=== PATIENT | female | born 1985 | race Caucasian/White ===

== ENCOUNTER 2019-03-19 12:47 | Inpatient (IN) | payer MEDICAID ==
[~2019-03-19] VITALS: Ht 175.3 cm; Wt 79.4 kg
[2019-03-19 15:46] LABS: BASOPHILS 0.2 % (0-2); EOSINOPHILS 1.6 % (0-7); HEMATOCRIT 44.9 % (36.0-48.0); HEMOGLOBIN 14.8 g/dL (12-16); IMMATURE GRANULOCYTES 0.2 % (0-5); LYMPHOCYTES 14.8 % (15-50); MCH 30.6 pg (26.0-34.0); MEAN PLATELET VOLUME 9.4 fL (7.4-10.4); MONOCYTES 5.5 % (2-11); NEUTROPHILS 77.7 % (40-80); RBC 4.83 10x6/uL (4.00-5.40); WBC 16.4 10x3/uL (4.8-10.8)
[2019-03-19 15:47] LABS: PLATELET COUNT 313 10x3/uL (130-400)
[2019-03-19 15:58] LABS: CALC OSMOLALITY 276 mosm/kg (275-300); CALCIUM 8.7 mg/dL (8.5-10.1); CARBON DIOXIDE 30.9 mmol/L (21.0-32.0); CHLORIDE - SERUM 101 mmol/L (98-107); CREATININE - SERUM 0.9 mg/dL (0.6-1.3); GLUCOSE 91 mg/dL (74-106); POTASSIUM - SERUM 3.9 mmol/L (3.5-5.1); SODIUM 138 mmol/L (136-145); UREA NITROGEN 16 mg/dL (7-18); eGFR NON AFRICAN AMERICAN 77 mL/min (90-120)
[2019-03-19 16:04] LABS: ALBUMIN 2.9 g/dL (3.4-5.0); ALKALINE PHOSPHATASE 80 U/L (46-116); ALT (SGPT) 21 U/L (10-68); BILIRUBIN - TOTAL 0.59 mg/dL (0.2-1.3); C-REACTIVE PROTEIN 4.4 mg/dL (0.0-0.9); MAGNESIUM - SERUM 1.8 mg/dL (1.8-2.4); PROTEIN - SERUM 7.7 g/dL (6.4-8.2)
--- NOTE | 2019-03-19 17:44 | NUR ---
PT PROVIDED WITH ICE CHIPS.
[2019-03-19 18:34] VITALS: BP 99/62
--- NOTE | 2019-03-19 21:37 | NUR ---
PT ARRIVED ON UNIT VIA WHEELCHAIR, ESCORTED BY ER STAFF AND FAMILY MEMBER. IV TO RIGHT AC WITH NS INFUSING AT 100 ML/HR. ORIENTED TO ROOM AND CALL LIGHT.
--- NOTE | 2019-03-19 21:45 | NUR ---
GAVE MORPHINE AND ZOFRAN PER PRN ORDER, PER REQUEST FOR PAIN AND NAUSEA.
--- NOTE | 2019-03-19 22:00 | NUR ---
PROVIDED RAINER CRACKERS, PEANUT BUTTER, ICE CREAM, MILK, AND SODA FOR PT PER REQUEST FOR FOOD.
[2019-03-20] VITALS (7 sets, daily range): BP systolic 96–105; BP diastolic 50–458; BMI 25.9
--- NOTE | 2019-03-20 19:00 | NUR ---
BEDSIDE REPORT RECEIVED AND CARE OF PT ASSUMED. PT LYING IN SUPINE POSITION WITH EYES CLOSED AND EASY RESPIRATIONS. IV TO RIGHT AC PATENT WITH NS INFUSING AT 100 ML/HR. WILL MONITOR FOR NEEDS.
--- NOTE | 2019-03-20 20:54 | NUR ---
HS MEDICATIONS GIVEN. WILL CONTINUE TO MONITOR FOR NEEDS.
[2019-03-20 21:25] LABS: BASOPHILS 0.3 % (0-2); EOSINOPHILS 2.3 % (0-7); HEMATOCRIT 37.3 % (36.0-48.0); HEMOGLOBIN 11.9 g/dL (12-16); IMMATURE GRANULOCYTES 0.2 % (0-5); LYMPHOCYTES 14.9 % (15-50); MCH 30.4 pg (26.0-34.0); MCHC 31.9 g/dL (31.0-37.0); MEAN PLATELET VOLUME 9.3 fL (7.4-10.4); MONOCYTES 7.2 % (2-11); NEUTROPHILS 75.1 % (40-80); PLATELET COUNT 265 10x3/uL (130-400); RBC 3.91 10x6/uL (4.00-5.40); RDW 12.2 % (11.5-14.5); WBC 14.9 10x3/uL (4.8-10.8)
[2019-03-20 21:26] LABS: MCV 95.4 fL (80.0-100.0)
[2019-03-20 21:32] LABS: CALC OSMOLALITY 281 mosm/kg (275-300); CALCIUM 8.2 mg/dL (8.5-10.1); CARBON DIOXIDE 30.6 mmol/L (21.0-32.0); CHLORIDE - SERUM 105 mmol/L (98-107); CREATININE - SERUM 0.8 mg/dL (0.6-1.3); GLUCOSE 130 mg/dL (74-106); POTASSIUM - SERUM 3.9 mmol/L (3.5-5.1); SODIUM 141 mmol/L (136-145); eGFR NON AFRICAN AMERICAN 88 mL/min (90-120)
[2019-03-20 21:43] LABS: UREA NITROGEN 9 mg/dL (7-18)
--- NOTE | 2019-03-20 23:15 | NUR ---
COLLECTED URINE FOR ORDERED STUDIES AND DELIVERED TO LAB.
[2019-03-20 23:35] LABS: APPEARANCE CLEAR (CLEAR); BILIRUBIN NEGATIVE (NEGATIVE); COLOR YELLOW (YELLOW); GLUCOSE NEGATIVE (NEGATIVE); KETONE NEGATIVE (NEGATIVE); NITRITE NEGATIVE (NEGATIVE); PROTEIN NEGATIVE (NEGATIVE); UROBILINOGEN NORMAL (NORMAL)
[2019-03-20 23:43] LABS: UDS - AMPHET POSITIVE QUAL (NEGATIVE); UDS - BARB NEGATIVE QUAL (NEGATIVE); UDS - BENZO NEGATIVE QUAL (NEGATIVE); UDS - COCAINE NEGATIVE QUAL (NEGATIVE); UDS - OPIATE POSITIVE QUAL (NEGATIVE); UDS - PCP NEGATIVE QUAL (NEGATIVE); UDS - THC NEGATIVE QUAL (NEGATIVE)
[2019-03-21 04:00] VITALS: BP 95/56
[2019-03-21 04:42] LABS: BASOPHILS 0.2 % (0-2); EOSINOPHILS 2.6 % (0-7); HEMATOCRIT 37.8 % (36.0-48.0); IMMATURE GRANULOCYTES 0.4 % (0-5); LYMPHOCYTES 18.8 % (15-50); MCH 30.1 pg (26.0-34.0); MCHC 31.7 g/dL (31.0-37.0); MCV 94.7 fL (80.0-100.0); MEAN PLATELET VOLUME 9.3 fL (7.4-10.4); PLATELET COUNT 301 10x3/uL (130-400); RBC 3.99 10x6/uL (4.00-5.40); RDW 12.1 % (11.5-14.5); WBC 14.2 10x3/uL (4.8-10.8)
[2019-03-21 04:47] LABS: CALC OSMOLALITY 277 mosm/kg (275-300); CALCIUM 8.2 mg/dL (8.5-10.1); CARBON DIOXIDE 32.2 mmol/L (21.0-32.0); CHLORIDE - SERUM 103 mmol/L (98-107); CREATININE - SERUM 0.7 mg/dL (0.6-1.3); GLUCOSE 99 mg/dL (74-106); MAGNESIUM - SERUM 1.5 mg/dL (1.8-2.4); SODIUM 139 mmol/L (136-145); eGFR NON AFRICAN AMERICAN > 90 mL/min (90-120)
[2019-03-21 04:51] LABS: UREA NITROGEN 12 mg/dL (7-18)
--- NOTE | 2019-03-21 06:24 | NUR ---
PT CONSENTED FOR PROCEDURE WITH WITNESS NURSE.
--- NOTE | 2019-03-21 06:40 | NUR ---
HIBACLENS SHOWER COMPLETED AND ALL LINENS ANG GOWN CHANGED.
--- NOTE | 2019-03-21 06:56 | NUR ---
STARTED MAG RIDERS X2 1 GM PER THE ELECTROLYTE PROTOCAL
--- NOTE | 2019-03-21 07:15 | NUR ---
REC'D IN BED AWAKE AND ALERT. RESP EVEN AND UNLABORED WITH NO DISTRESS NOTED. CAN EXPRESS NEEDS AND WANTS. DRESSING NOTED TO RIGHT BREAST. ASSESSMENT COMPLETED. C/L IN REACH AT BEDSIDE.
--- NOTE | 2019-03-21 07:37 | NUR ---
PT C/O RIGHT BREAST PAIN RATING 7/10 ON PAIN SCALE. WAS MEDICATED WITH PRN PER ORDERS FOR PAIN AND NAUSEA. C/L IN REACH AT BEDSIDE.
[2019-03-21 07:58] VITALS: BP 94/55
[2019-03-21 10:27] VITALS: BP 88/46
--- NOTE | 2019-03-21 10:30 | NUR ---
RETURN FROM PROCEDURE WITH DRESSING INTACT WITH NOTED BLOOD TINGE STAIN WHICH IS A BOW DOLLAR IN SIZE SPOT MARKED. C/L IN REACH AT BEDSIDE.
[2019-03-21 11:39] VITALS: BP 90/45
[2019-03-21 13:33] VITALS: Ht 175.3 cm; Wt 79.4 kg
[2019-03-21 17:33] VITALS: BP 101/55
--- NOTE | 2019-03-21 18:35 | NUR ---
I have reviewed this patient and I concur with the Shift Assessment completed by the Licensed Practical Nurse today this shift.
--- NOTE | 2019-03-21 19:00 | NUR ---
BEDSIDE REPORT RECEIVED AND CARE OF PT ASSUMED. PT LYING IN SUPINE POSITION VISITING WITH FAMILY MEMBER. IV TO RIGHT AC PATENT WITH NS INFUSING AT 100 ML/HR. DRESSING ON RIGHT BREAST WITH BLOODY DRAINAGE SEEPING UP TO SURFACE ON BOTTOM HALF OF DRESSING. WILL MONITOR FOR NEEDS.
--- NOTE | 2019-03-21 20:33 | NUR ---
GAVE MORPHINE AND ZOFRAN IVP PER REQUEST FOR PAIN AND NAUSEA, PER PRN ORDER. WILL MONITOR FOR EFFECTIVENESS.
[2019-03-21 21:11] VITALS: BP 107/63
--- NOTE | 2019-03-21 21:30 | NUR ---
DRESSING ON RIGHT BREAST SOAKED WITH BLOODY DRAINAGE. REMOVED ALL OUTER DRESSINGS, LEAVING PACKING AND BOTTOM 2 4X4'S UNDISTURBED. REPLACED WITH 4X4'S AND ABD PAD. WILL CONTINUE TO MONITOR CLOSELY.
--- NOTE | 2019-03-21 21:39 | OP ---
PATIENT NAME: CHAS DAMON MEDICAL RECORD: [id number] :87 LOCATION:D.[facility] ADMISSION DATE:03/19/19 SURGEON: DEISY BROWN MD DATE OF OPERATION: 03/21/2019 SURGEON: Deisy Brown MD PREOPERATIVE DIAGNOSIS: Right breast abscess. POSTOPERATIVE DIAGNOSIS: Complex multiloculated right breast abscess. PROCEDURE PERFORMED: Incision and drainage of multiloculated complex right breast abscess 8 x 6 x 4 cm. ANESTHESIA: General. COMPLICATIONS: None. SPECIMENS: Anaerobic and aerobic cultures. Case was grossly contaminated. OPERATIVE COURSE: After consent was obtained, the patient was taken to the operating room and placed in supine position on the operating table. Next, general anesthesia was given. A timeout was taken to confirm the correct patient and procedure. The right breast was prepped and draped in typical sterile fashion. The area overlying necrotic skin was excised with a 15 blade scalpel. Approximately 40 cc of purulent fluid were expressed from the right breast cavity. Specimens were collected for anaerobic and aerobic culture. The abscess cavity was multiloculated. The loculations were broken with blunt finger dissection. The abscess cavity was then copiously irrigated and suctioned. It was packed with iodoform gauze and covered with dry gauze dressings and tape. At the end of the case, all needle and instrument counts were correct. No complications occurred. The patient extubated and transferred to the PACU in stable condition. TRANSINT:[id number] Voice Confirmation ID: [id number] DOCUMENT ID: [id number] DEISY BROWN MD at 2139 CC: [id number] DICTATION DATE: 03/21/19 0936 JEWELRY RACKER: 03/21/19 1201 ADM IN [facility] [id number] [place] [address]
--- NOTE | 2019-03-22 00:30 | NUR ---
GAVE MORPHINE AND ZOFRAN IVP PER REQUEST FOR PAIN AND NAUSEA, PER PRN ORDERS.
[2019-03-22 01:24] VITALS: BP 100/52
[2019-03-22 04:56] VITALS: BP 92/50
[2019-03-22 05:56] LABS: BASOPHILS 0.2 % (0-2); EOSINOPHILS 0.6 % (0-7); HEMATOCRIT 35.7 % (36.0-48.0); HEMOGLOBIN 11.5 g/dL (12-16); IMMATURE GRANULOCYTES 0.5 % (0-5); LYMPHOCYTES 18.1 % (15-50); MCH 30.6 pg (26.0-34.0); MCHC 32.2 g/dL (31.0-37.0); MCV 94.9 fL (80.0-100.0); MEAN PLATELET VOLUME 9.6 fL (7.4-10.4); MONOCYTES 6.1 % (2-11); NEUTROPHILS 74.5 % (40-80); PLATELET COUNT 301 10x3/uL (130-400); RBC 3.76 10x6/uL (4.00-5.40)
[2019-03-22 06:12] LABS: CALC OSMOLALITY 282 mosm/kg (275-300); CALCIUM 8.3 mg/dL (8.5-10.1); CARBON DIOXIDE 32.8 mmol/L (21.0-32.0); CHLORIDE - SERUM 106 mmol/L (98-107); CREATININE - SERUM 0.8 mg/dL (0.6-1.3); GLUCOSE 115 mg/dL (74-106); MAGNESIUM - SERUM 1.6 mg/dL (1.8-2.4); POTASSIUM - SERUM 4.2 mmol/L (3.5-5.1); SODIUM 142 mmol/L (136-145); UREA NITROGEN 11 mg/dL (7-18); eGFR NON AFRICAN AMERICAN 88 mL/min (90-120)
--- NOTE | 2019-03-22 07:35 | MORECARE ---
CASE MANAGEMENT DISCHARGE SUMMARY PATIENT: CHAS DAMON UNIT: [id number] ADM DATE: 03/19/19 AGE: 33 : [birth year] SEX: F ROOM/BED: D.2222 AUTHOR: JAKUB BUSH PHYSICIAN: REFERRING PHYSICIAN: JEAN CARVER MD DATE OF SERVICE: 03/22/19 Discharge Plan Patient Name: CHAS DAMON [facility] 1985 Planned Disposition: Home Anticipated Discharge Date: Discharge Date: Expected LOS: Initial Reviewer: [email or web address] Initial Review Date: 03/22/2019 Generated: 03/22/19 8:35 am DCPIA - Discharge Planning Initial Assessment Updated by [email or web address]: Loretta Hendrickson on 03/22/19 7:34 am * Is the patient Alert and Oriented? Yes * How many steps to enter\exit or inside your home? 0/0 * PCP None * Pharmacy [facility] * Preadmission Environment Home with Family * ADLs Independent * Equipment None * List name and contact numbers for known caregivers / representatives who currently or will assist patient after discharge: Luis Armando Fair - No phone * Verbal permission to speak to the caregivers and representatives has been obtained from the patient. Yes * Community resources currently utilized None * Additional services required to return to the preadmission environment? No * Can the patient safely return to the preadmission environment? Yes * Has this patient been hospitalized within the prior 30 days at any hospital? Yes Patient Name: CHAS DAMON Page [id number] at 0735 All edits/amendments must be made on the electronic document DICTATION DATE: 03/22/19734 TIE TAPE MACHINE OPERATOR: CHRISTINE 03/22/1934 RPT#: [id number] DC DATE: STATUS: ADM IN [facility] [address] [place] [address] END OF REPORT
--- NOTE | 2019-03-22 07:43 | MORECARE ---
CASE MANAGEMENT DISCHARGE SUMMARY PATIENT: CHAS DAMON UNIT: [id number] ADM DATE: 03/19/19 AGE: 33 : [birth year] SEX: F ROOM/BED: D.2222 AUTHOR: ELEAZARDOC PHYSICIAN: REFERRING PHYSICIAN: JEAN CARVER MD DATE OF SERVICE: 03/22/19 Discharge Plan Patient Name: CHAS DAMON Facility: [facility]:[place] : 1985 Planned Disposition: Home Anticipated Discharge Date: Discharge Date: Expected LOS: Initial Reviewer: [email or web address] Initial Review Date: 03/22/2019 Generated: 03/22/19 8:42 am Comments DCP- Discharge Planning Updated by [email or web address]: Loretta Hendrickson on 03/22/19 6:[address] Patient Name: CHAS DAMON Admission Status: ER Accout number: [id number] Admission Date: 03-19-2019 : 1985 Admission Diagnosis: Attending: JEAN CARVER Current LOS: 3 Anticipated DC Date: Planned Disposition: Home Primary Insurance: MEDICAID [place] PENDING Discharge Planning Comments: CM met with patient to complete initial dc planning assessment. CM educated patient on the CM role and verbal consent given by patient to complete assessment. Patient lives in a "boarding house" with 2 room mates. At discharge patient plans to return and feels this is a safe discharge. CM discussed availability of home health, rehab services, and medical equipment. Patient denied known discharge needs at this time. States either her land lord or her boyfriend will drive her home on discharge. I did instruct patient on calling Medicaid or going to the web site when she received her Medicaid in the mail to choose a PCP and the importance of it. Her mail goes to her mothers house (listed on face sheet). Her physical address is [address] [place] [address] in [place]. CM will continue to follow and will assist as needed with dc plans/needs. Pet Nutrition Specialist: Loretta Hendrickson DCPIA - Discharge Planning Initial Assessment Updated by [email or web address]: Loretta Hendrickson on 03/22/19 7:34 am * Is the patient Alert and Oriented? Yes * How many steps to enter\\exit or inside your home? 0/0 * PCP None * Pharmacy [facility] [address] * Preadmission Environment Home with Family * ADLs Independent * Equipment None * List name and contact numbers for known caregivers / representatives who currently or will assist patient after discharge: Luis Armando Leung - No phone * Verbal permission to speak to the caregivers and representatives has been obtained from the patient. Yes * Community resources currently utilized None * Additional services required to return to the preadmission environment? No * Can the patient safely return to the preadmission environment? Yes * Has this patient been hospitalized within the prior 30 days at any hospital? Yes Last DP export: 03/22/19 6:35 a Patient Name: CHAS DAMON Page [phone] at 0743 All edits/amendments must be made on the electronic document DICTATION DATE: 03/22/19741 REFLESHER: CHRISTINE 03/22/19741 RPT#: [id number] DC DATE: STATUS: ADM IN [facility] [address] [place] [address] END OF REPORT
--- NOTE | 2019-03-22 08:24 | NUR ---
PATIENT UP WALKING AROUND ROOM. FAMILY IN CHAIR ASLEEP AT BEDSIDE. ON ROOM PHONE. RAINER CRACKERS AND MILK PROVIDED. CL IN REACH. NO FURTHER NEEDS AT THIS TIME. WCTM
--- NOTE | 2019-03-22 09:14 | NUR ---
Right breast abscess I & D on 03/21/[address] Brown. Dressing change orders are to remove packing daily and pack with saline moistened kerlix. Wound care will monitor as needed.
[2019-03-22 09:16] VITALS: BP 100/54
--- NOTE | 2019-03-22 11:19 | NUR ---
NOTIFIED CALEB WITH VASCULAR ACCESS ABOUT PATIENT NEEDING AN IV. STATED SHE WOULD BE OVER HERE IN A SECOND.
[2019-03-22 13:29] VITALS: BP 135/75
--- NOTE | 2019-03-22 14:36 | MORECARE ---
CASE MANAGEMENT DISCHARGE SUMMARY PATIENT: CHAS DAMON UNIT: [id number] ADM DATE: 03/19/19 AGE: 33 : 86 SEX: F ROOM/BED: D.2222 AUTHOR: ELEAZARDOC PHYSICIAN: REFERRING PHYSICIAN: JEAN CARVER MD DATE OF SERVICE: 03/22/19 Discharge Plan Patient Name: CHAS DAMON Facility: [facility]:[place] : 1985 Planned Disposition: Home Anticipated Discharge Date: Discharge Date: Expected LOS: Initial Reviewer: [email or web address] Initial Review Date: 03/22/2019 Generated: 03/22/19 3:36 pm Comments DCP- Discharge Planning Updated by [email or web address]: Loretta Hendrickson on 03/22/19 1:[address] CM met with patient to discuss home health. She declines home health. 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 She is uninsured at this time with Medicaid pending, so this may be the best plan for this patient. CM will continue to follow and assist with discharge planning/needs. DCP- Discharge Planning Updated by [email or web address]: Loretta Hendrickson on 03/22/19 6:[address] Patient Name: CHAS DAMON Admission Status: ER Accout number: [id number] Admission Date: 03-19-2019 : 1985 Admission Diagnosis: Attending: JEAN CARVER Current LOS: 3 Anticipated DC Date: Planned Disposition: Home Primary Insurance: MEDICAID [place] PENDING Discharge Planning Comments: CM met with patient to complete initial dc planning assessment. CM educated patient on the CM role and verbal consent given by patient to complete assessment. Patient lives in a "boarding house" with 2 room mates. At discharge patient plans to return and feels this is a safe discharge. CM discussed availability of home health, rehab services, and medical equipment. Patient denied known discharge needs at this time. States either her land lord or her boyfriend will drive her home on discharge. I did instruct patient on calling Medicaid or going to the web site when she received her Medicaid in the mail to choose a PCP and the importance of it. Her mail goes to her mothers house (listed on face sheet). Her physical address is [address] [place] [address]. CM will continue to follow and will assist as needed with dc plans/needs. Record Producer: Loretta Romeroluna DCPIA - Discharge Planning Initial Assessment Updated by [email or web address]: Loretta Hendrickson on 03/22/19 7:34 am * Is the patient Alert and Oriented? Yes * How many steps to enter\\exit or inside your home? 0/0 * PCP None * Pharmacy [facility] on [address] * Preadmission Environment Home with Family * ADLs Independent * Equipment None * List name and contact numbers for known caregivers / representatives who currently or will assist patient after discharge: Luis Armando Leung - No phone * Verbal permission to speak to the caregivers and representatives has been obtained from the patient. Yes * Community resources currently utilized None * Additional services required to return to the preadmission environment? No * Can the patient safely return to the preadmission environment? Yes * Has this patient been hospitalized within the prior 30 days at any hospital? Yes Coverage Notice Reviewer: [email or web address] - Loretta Hendrickson Notice Issued Date-Time: 03/22/2019 14:23 Notice Type: Patient Choice Letter Notice Delivered To: Patient Relationship to Patient: Self Automotive Vehicle Inspector Name: Delivery Method: HAND - Hand Delivered Breana Days: Prior Verbal Notification: Recipient Understood Notice: Yes Recipient Signature: Yes Med Rec Note Co-signed by Attending: Coverage Notice Comment: Declines HHS Last DP export: 03/22/19 6:42 a Patient Name: CHAS DAMON Page [phone] at 1436 All edits/amendments must be made on the electronic document DICTATION DATE: 03/22/19 1436 THEATER EDUCATION TEACHER: CHRISTINE 03/22/19 1436 RPT#: [id number] DC DATE: STATUS: ADM IN [facility] [address] [place] [address] END OF REPORT
[2019-03-22] MEDS ORDERED: TYLENOL W/CODEI1 TAB PO (15:09)
[2019-03-22] MEDS ORDERED: NICODERM C1 PATCH .1 TRANSDERM (15:11)
[2019-03-22] MEDS ORDERED: DOXYCYCLINE HY100 M2 PO (15:12)
[2019-03-22] MEDS ORDERED: FLORAJEN3 CAPS460 MG PO (15:12)
[2019-03-22 17:21] VITALS: BP 115/66
--- NOTE | 2019-03-22 19:20 | NUR ---
DISCHARGE INSTRUCTIONS AND SCRIPTS FOR MED GIVEN BY JUNIOR PAUL DAY SHIFT RN.
--- NOTE | 2019-03-22 19:40 | NUR ---
REMOVED IV TO LEFT UPPER ARM WITH CATHETER TIP INTACT.
--- NOTE | 2019-03-22 19:50 | NUR ---
CALLED FOR TAXI..WILL BE HERE AT 8PM. PT INFORMED.
--- NOTE | 2019-03-22 20:00 | NUR ---
PT ESCORTED TO FRONT EXIT VIA WHEELCHAIR BY GYROSCOPIC INSTRUMENT TESTER WITH ALL BELONGINGS. TOLD HER TO CALL THIS NURSE IF ANY QUESTIONS OR CONCERNS ARISE TONIGHT.
--- NOTE | 2019-03-24 08:52 | MORECARE ---
CASE MANAGEMENT DISCHARGE SUMMARY PATIENT: CHAS DAMON UNIT: [id number] ADM DATE: 03/19/19 AGE: 33 : 87 SEX: F ROOM/BED: D.2222 AUTHOR: JAKUB BUSH PHYSICIAN: REFERRING PHYSICIAN: JEAN CARVER MD DATE OF SERVICE: 03/24/19 Discharge Plan Patient Name: CHAS DAMON Facility: [facility]:[place] : 1985 Planned Disposition: Home Anticipated Discharge Date: Discharge Date: 03/22/2019 Expected LOS: 0 Initial Reviewer: [email or web address] Initial Review Date: 03/22/2019 Generated: 03/24/19 9:52 am Comments DCP- Discharge Planning Updated by [email or web address]: Loretta Hendrickson on 03/22/19 1:[address] CM met with patient to discuss home health. She declines home health. 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 She is uninsured at this time with Medicaid pending, so this may be the best plan for this patient. CM will continue to follow and assist with discharge planning/needs. DCP- Discharge Planning Updated by [email or web address]: Loretta Hendrickson on 03/22/19 6:[address] Patient Name: CHAS DAMON Admission Status: ER Accout number: [id number] Admission Date: 03-19-2019 : 1985 Admission Diagnosis: Attending: JEAN CARVER Current LOS: 3 Anticipated DC Date: Planned Disposition: Home Primary Insurance: MEDICAID [place] PENDING Discharge Planning Comments: CM met with patient to complete initial dc planning assessment. CM educated patient on the CM role and verbal consent given by patient to complete assessment. Patient lives in a "boarding house" with 2 room mates. At discharge patient plans to return and feels this is a safe discharge. CM discussed availability of home health, rehab services, and medical equipment. Patient denied known discharge needs at this time. States either her land lord or her boyfriend will drive her home on discharge. I did instruct patient on calling Medicaid or going to the web site when she received her Medicaid in the mail to choose a PCP and the importance of it. Her mail goes to her mothers house (listed on face sheet). Her physical address is [address] [place] [address]. CM will continue to follow and will assist as needed with dc plans/needs. Med Spa Manager: Loretta Romeroluna DCPIA - Discharge Planning Initial Assessment Updated by [email or web address]: Loretta Hendrickson on 03/22/19 7:34 am * Is the patient Alert and Oriented? Yes * How many steps to enter\\exit or inside your home? 0/0 * PCP None * Pharmacy [facility] on [address] * Preadmission Environment Home with Family * ADLs Independent * Equipment None * List name and contact numbers for known caregivers / representatives who currently or will assist patient after discharge: Luis Armando Leung - No phone * Verbal permission to speak to the caregivers and representatives has been obtained from the patient. Yes * Community resources currently utilized None * Additional services required to return to the preadmission environment? No * Can the patient safely return to the preadmission environment? Yes * Has this patient been hospitalized within the prior 30 days at any hospital? Yes Coverage Notice Reviewer: [email or web address] - Loretta Hendrickson Notice Issued Date-Time: 03/22/2019 14:23 Notice Type: Patient Choice Letter Notice Delivered To: Patient Relationship to Patient: Self Gas Load Dispatcher Name: Delivery Method: HAND - Hand Delivered Breana Days: Prior Verbal Notification: Recipient Understood Notice: Yes Recipient Signature: Yes Med Rec Note Co-signed by Attending: Coverage Notice Comment: Declines HHS Last DP export: 03/22/19 1:36 p Patient Name: CHAS DAMON Page 12591 at 0852 All edits/amendments must be made on the electronic document DICTATION DATE: 03/24/1951 TUBE FILLER: CHRISTINE 03/24/19 0852 RPT#: [id number] DC DATE:03/22/19 STATUS: DIS IN [facility] [address] [place] [address] END OF REPORT
== END 2019-03-22 20:01 | disposition home or self-care (01) | DRG 584 ==
LOC: D.ER 12:47 → D.MS 19:32
PROVIDERS: Family Medicine; Surgery; ADMIT Internal Medicine Nephrology; ATTEND Internal Medicine Nephrology
PROC: 0H9T0ZZ Drainage of Right Breast, Open Approach (ICD-10-PCS; principal; 2019-03-21 10:00)
DX: N61.1 Abscess of the breast and nipple (principal); F17.213 Nicotine dependence, cigarettes, with withdrawal; F12.90 Cannabis use, unspecified, uncomplicated

== ENCOUNTER 2019-07-20 19:51 | Emergency (ER) | payer OTHER ==
[~2019-07-20] VITALS: Ht 175.3 cm; Wt 85.0 kg
[~2019-07-20 19:51] MED LIST: DOXYCYCLINE HY100 M2 PO; FLORAJEN3 CAPS460 MG PO; NICODERM C1 PATCH .1 TRANSDERM; TYLENOL W/CODEI1 TAB PO
[2019-07-20 20:01] VITALS: Ht 175.3 cm; Wt 85.0 kg
[2019-07-20] MEDS ORDERED: CLEOCIN HCL300 MG PO (20:39)
[2019-07-20] MEDS ORDERED: VOLTAREN75 MG PO (20:39)
[2019-07-20] MEDS ORDERED: TYLENOL W/CODEI1 TAB PO (21:07)
[2019-07-20 21:38] VITALS: BP 126/76
== END 2019-07-20 21:38 | disposition home or self-care (01) ==
LOC: D.ER 19:51
DX: L02.412 Cutaneous abscess of left axilla (principal)